=== PATIENT | female | born 1945 | race Caucasian/White ===

== ENCOUNTER 2017-12-17 06:53 | Day surgery (SDC) | payer OTHER, BC ==
[~2017-12-17] VITALS: Ht 154.9 cm; Wt 82.6 kg
[~2017-12-17 06:53] MED LIST: GLUCOSAMINE1000 MG PO; PRAVACHOL40 MG PO; PRILOSEC20 MG PO
[2017-12-17 08:24] VITALS: BP 154/72
[2017-12-17 11:30] VITALS: BP 167/70
[2017-12-17 12:08] VITALS: BP 180/66
== END 2017-12-17 12:21 | disposition home or self-care (01) ==
LOC: SDC 06:53
DX: H35.372 Puckering of macula, left eye (principal); K21.9 Gastro-esophageal reflux disease without esophagitis; Z87.891 Personal history of nicotine dependence; E78.5 Hyperlipidemia, unspecified
CPT/HCPCS: J0690; J0713; J2795; J3300